=== PATIENT | male | born 1975 | race Two or more races ===

== ENCOUNTER → 2024-09-16 | Emergency (ER) | payer OTHER ==
[~2024-09-16] VITALS: Ht 167.6 cm; Wt 88.5 kg
== END | disposition left against medical advice (07) ==
LOC: ER 21:38
DX: Z53.21 Procedure and treatment not carried out due to patient leaving prior to being seen by health care provider (principal)

== ENCOUNTER 2025-04-13 09:40 | Emergency (ER) | payer OTHER ==
[~2025-04-13] VITALS: Ht 165.1 cm; Wt 95.3 kg
[2025-04-13 10:47] VITALS: BP 150/80; O2SAT 100
[2025-04-13] MEDS ORDERED: KETOROLAC TROMETHAMINE 60 MG VIAL IM ONE ×2 (11:03→11:15)
[2025-04-13] MEDS ORDERED: CEFTRIAXONE SODIUM 1,000 MG VIAL ONE (11:04)
[2025-04-13] MEDS ORDERED: CEFTRIAXONE SODIUM 1,000 MG VIAL IM ONE (11:15)
== END 2025-04-13 13:32 | disposition home or self-care (01) ==
LOC: ER 10:09
DX: S50.01XA Contusion of right elbow, initial encounter (principal); W19.XXXA Unspecified fall, initial encounter; Y93.89 Activity, other specified; Y92.89 Other specified places as the place of occurrence of the external cause; Y99.9 Unspecified external cause status; I10 Essential (primary) hypertension